=== PATIENT | female | born 1940 | race Caucasian/White ===

== ENCOUNTER 2024-02-02 14:41 | Emergency (ER) | payer OTHER, SELFPAY ==
[2024-02-02 14:47] VITALS: BP 191/87
--- NOTE | 2024-02-02 17:17 | ED.GENMED ---
History of Present Illness
General
Chief Complaint: Fall
Source: patient
Exam Limitations: none
Time Seen by Provider: 02/02/24 15:45
Nursing documentation reviewed up to this point in time: agreed with
Travel History
Have you had any contact with someone who has COVID-19?: No
Do you have any symptoms of coronavirus? Fever > 100 degrees, chills, cough, shortness of breath, sore throat, loss of taste or smell, muscle aches, or headache?: No
History of Present Illness
History of Present Illness:
83-year-old female past medical history of Parkinson's hypertension hypothyroidism presenting to the emergency department today after falling backward and turning while falling hitting her right thigh and also hitting the back of her head did not
lose consciousness not on blood thinners. This occurred when she was helping her who has dementia and got tripped up and fell denies additional concerns Main discomfort to her right thigh but has been able to walk since denies numbness
weakness abdominal pain or back pain.
Past History
Past History
ED Past Medical History: Cancer (Breast cancer), Psychiatric (Anxiety) and Other (Parkinson's disease)
ED Past Surgical History: Gynecological and Other (Thyroidectomy)
Social History
Tobacco: Former smoker
Alcohol: Daily (1 glass wine)
Drug: None
Personal:
Living: with family
Review of Systems
Review of Systems
Allergies reviewed?: Yes
All Other Systems: ROS reviewed and negative except as documented in HPI and ROS
Phy Exam
Physical Exam
Physical Exam:
GENERAL: Alert , in no apparent distress
EYE: pupils equal and reactive
NECK: Supple, no significant adenopathy.
ENT: o/p clr, mmm.
CARDIAC: Regular rate and rhythm .
LUNGS: Clear breath sounds bilaterally, no acute respiratory distress, no wheezes/rales/rhonchi
ABDOMEN: Soft, without focal tenderness, no r/g, no cvat
NEUROLOGICAL: Alert and oriented, no focal neuro deficits
SKIN: Warm and dry, skin intact.
MUSCULOSKELETAL: Swelling and contusion as well as hematoma to the right thigh also very superficial skin tears roughly 6 cm in total length no foreign body seen., well perfused.
PSYCH: Normal and appropriate interaction.
Course
Orders/Labs/Results
Orders:
Orders
02/02/24 14:50
CT Cervical Spine W/o Iv Contr Urgent
Comment:
Reason For Exam: fall
CT Head W/o Iv Contrast Urgent
Comment:
Reason For Exam: fall
CR Femur - Right Min 2 Vw Urgent
Comment:
Reason For Exam: fall
CR Hip - RT w/wo Pel 2-3 Vw* Urgent
Comment:
Reason For Exam: fall
Include a pelvis x-ray?: Yes
CR Knee- Right 4 Or More View* Urgent
Comment:
Reason For Exam: fall
Vital Signs
Initial and Last Documented VS:
Initial Vital Signs
Temp Pulse Resp BP Pulse Ox
98.2 F 60 18 191/87 99
02/02/24 14:47 02/02/24 14:47 02/02/24 14:47 02/02/24 14:47 02/02/24 14:47
Last Documented Vital Signs
Temp Pulse Resp BP Pulse Ox
98.2 F 60 18 191/87 99
02/02/24 14:47 02/02/24 14:47 02/02/24 14:47 02/02/24 14:47 02/02/24 14:47
Procedures
Laceration Closure
Right Lateral Thigh:
Status of Wound: clean
Size of Wound in cm: 6
Description of Wound Edges: other (Skin )
Preparation: cleaned with saline
Revision/Debridement: routine- no revision
Wound exploration: explored to base- no FB and no tendon involvement
Type of Closure: other (10 total Steri-Strips)
MDM/Problems Addressed
MDM/Problems Addressed:
83-year-old female presenting to the emergency department after ground-level fall. Was able to stand up and ambulate since. Initial blood pressure elevated but patient with no chest pain head CT and neck CT normal no significant ongoing neck pain
no numbness or weakness normal neurologic evaluation. Patient does have a skin tear to the right thigh this was cleaned thoroughly and closed with Steri-Strips. Otherwise advised to keep the area clean covered and stable for outpatient management.
Return precautions given. Will follow-up for her high blood pressure.
*Critical Care Note
Total Time (30-74mins, 75-104mins- exclusive of procedures): Not Applicable
ED Attending Note
-
Portions of this chart may have been created with voice recognition software.� Occasional wrong word or��sound alike� substitutions may have occurred due to the inherent limitations of voice recognition software.
Discharge Plan
Departure
Patient Disposition: Home (Routine Discharge)
Date of Disposition: 02/02/24
Time of Disposition: 17:20
Patient with high blood pressure during this ER visit?: No
Condition: Good
Covid-19: Not Applicable
Discharge Problem:
Fall, Skin tear
Instructions: Wound Care (DC), Preventing falls in adults
Prescriptions:
No Action
amlodipine [Norvasc] 5 MG tablet
5 mg PO DAILY Qty: 14 0RF
Rx Instructions:
one tablet once a day
Referrals:
Nargis Busby MD [Family Provider] -
Activity Restrictions/Additional Instructions:
You came to the emergency department today with concerns of a fall. Here you had a normal head CT neck CT and x-rays without signs of emergent injury. Please keep your thigh clean covered and return for any worsening, new or concerning symptoms.
Interventions
Interventions:
*Risk Screen - Suicide Last Done: 02/02/24 14:47
*General Assessment Last Done: 02/02/24 14:47
ED-Musculoskeletal Assessment Last Done: 02/02/24 16:01
ED- Neurological Assessment Last Done: 02/02/24 16:01
ED-Skin Assessment Last Done: 02/02/24 16:01
== END 2024-02-02 17:33 | disposition home or self-care (01) ==
LOC: EMR 14:41
PROVIDERS: EMERGENCY PHYSICIAN Emergency Medicine; FAMILY PHYSICIAN Internal Medicine Geriatric Medicine
DX: S71.111A Laceration without foreign body, right thigh, initial encounter (principal); S70.11XA Contusion of right thigh, initial encounter; W18.30XA Fall on same level, unspecified, initial encounter; I10 Essential (primary) hypertension; Z87.891 Personal history of nicotine dependence
CPT/HCPCS: 99284; 70450; 72125; 73502; 73552; 73564

== ENCOUNTER 2024-08-08 21:24 | Inpatient (IN) | payer OTHER, SELFPAY ==
[2024-08-08] VITALS (7 sets, daily range): BP systolic 122–189; BP diastolic 67–96; BMI 22.5; BMI 22.2
--- NOTE | 2024-08-08 18:00 | ED.MUSCINJ ---
HPI-Injury
General
Chief Complaint: Fall
Time Seen by Provider: 08/08/24 17:35
History of Present Illness-Injury
Initial Injury comments:
Patient presents to the emergency department with right hip pain after fall. Notes that this is a mechanical fall and she was reaching for blood and open a door and lost her footing. She landed on the right hip. There is no head strike or loss of
consciousness. She denies pain anywhere else besides the right hip. Denies numbness or tingling going down the legs.
Past History
Past History
ED Past Medical History: Cancer (Breast cancer), Psychiatric (Anxiety) and Other (Parkinson's disease)
ED Past Surgical History: Gynecological and Other (Thyroidectomy)
Social History
Tobacco: Former smoker
Alcohol: Daily (1 glass wine)
Drug: None
Personal:
Living: with family
Phy Exam
Physical Exam
Physical Exam:
GENERAL APPEARANCE: Uncomfortable appearing moaning in pain
EYES lids/conjunctiva normal
EARS/NOSE/THROAT Mucous membranes moist, uvula midline without oral pharyngeal erythema, exudate or swelling
HEAD/NECK normocephalic atraumatic, neck is supple.
RESPIRATORY respiratory effort normal, speaks in full sentences, no accessory muscle use. Lungs clear to auscultation without rhonchi, wheezes, rales
CARDIAC Regular rate and rhythm, no edema.
ABDOMINAL Soft, ND/NT.
MUSCLES/EXTREMITIES right leg is shortened and there is tenderness at the hip. There is no tenderness in the knee. Pedal pulses, sensation and motor function are all intact distally.
SKIN Warm, pink and dry. No rashes
NEUROLOGICAL Speech is clear and appropriate. Normal level of consciousness. 5/5 strength in all extremities.
Injury Course
Orders/Labs/Results
Orders:
Orders
08/08/24 Breakfast
Regular
08/08/24 17:57
Electrocardiogram (*1) Urgent
Reason for Study: PreOp
08/08/24 17:58
CR Hip - RT w/wo Pel 2-3 Vw* Urgent
Comment:
Reason For Exam: fall with deformity
Include a pelvis x-ray?: Yes
08/08/24 18:00
Acetaminophen [Tylenol] 1,000 mg PO NOW STA
Morphine Sulfate 2 mg IV NOW STA
08/08/24 18:33
Type+Screen Urgent
Complete Blood Count/With Diff Urgent
Comprehensive Metabolic Panel Urgent
PTT Urgent
Prothrombin Time Urgent
08/08/24 19:05
ABO2 Urgent
BBK Wristband Number:
Associate notified that ABO2 has been ordered: [id number]
Date: 08/08/24
Time: 18:41
G[employer] Farmworker ID: [id number]
Urinalysis Reflex To Culture Urgent
Date Specimen was Collected: 08/08/24
Time Specimen was Collected: 18:58
08/08/24 19:14
Morphine Sulfate 2 mg .ROUTE .STK-MED ONE
08/08/24 19:21
Morphine Sulfate 2 mg IV NOW STA
08/08/24 19:23
Carbidopa/Levodopa [Sinemet 25-100] 1 tablet PO NOW STA
08/08/24 20:54
Admit/Transfer Patient As Directed
Co-Sign Provider:
Level of Care: Inpatient admission
Assign to:: Telemetry
Physician / Group: Zeus
Diagnosis: R Hip Fracture
Reason for Telemetry: Arrhythmia
Date to Stop Telemetry: 08/11/24
Time to Stop Telemetry: 11:00
Reason for Hospitalization: R Hip Fracture
Expected length of stay greater than two midnights?: Yes
ELOS- Estimated Length of Stay in days: 2
I certify the patient meets the requirements for IP care: Yes
PRN Pain Medication Management As Directed
May give lesser potent ordered pain med per pt: Yes
preference::
Protocol:: Medication orders for pain may be administered in a
manner that supports deferring to patient preference
when the pt is:
- Requesting an ordered lesser potent pain medication.
Least to most potent pain medications are defined
as: acetaminophen < NSAID < tramadol < opioids
(morphine, oxycodone, hydromorphone).
- Requesting a lesser dose of the same medication IF
ORDERED.
- Requesting a less intrusive route of administration
if both routes are prescribed by the provider (PO <
IV).
08/08/24 20:56
Code Status As Directed
Resuscitation Status: Full Code
08/08/24 21:01
Morphine Sulfate 2 mg IV NOW STA
08/08/24 22:11
Amlodipine [Norvasc] 2.5 mg PO HS
Carbidopa/Levodopa [Sinemet 25-100] 0.5 tablet PO HS
Morphine Sulfate 2 mg IV Q4HPRN PRN
08/08/24 22:11
ORTHOPEDIC CONSULT Routine
Consulting Provider: Shyam Quiñones
Was physician already notified: Yes
Reason for consult: R Hip Fracture
Activity As Directed
Activity Level: Bedrest
I/O [Intake/ Output] As Directed
Frequency: Per unit guidelines
Pneumatic Compression Sleeves As Directed
Type: Knee high
Vital Signs As Directed
Frequency: Per unit guidelines
Oxygen Therapy [O2 Therapy] [RESP] Routine
Titrate/Wean O2 to maintain O2 sat greater than (%): 94
DX Deep Vein Thrombosis Video Routine
08/09/24 00:35
Acetaminophen [Tylenol] 1,000 mg PO TID
08/09/24 Breakfast
NPO
Allow oral meds: Yes
Allow clear liquids: Sips of Clears
NPO for procedure after (time): Midnight
Basic Metabolic Panel IN AM
Complete Blood Count/No Diff IN AM
Levothyroxine [Synthroid] 112 mcg PO DAILY @ 0600
08/09/24 08:00
Carbidopa/Levodopa [Sinemet 25-100] 1 tablet PO TID@0800,1400,1800
08/11/24 11:00
DC Protocol for Telemetry ONCE
Abnormal Lab Results
08/08/24
18:33
RBC 3.83 L 10^6/uL
(4.20-5.40)
Hgb 11.5 L g/dL
(12.0-16.0)
Hct 33.7 L %
(37.0-47.0)
Eosinophils % 6.5 H %
(0-6)
BUN 21 H mg/dl
(7-17)
08/08/24 18:33
08/08/24 18:33
*Critical Care Note
Total Time (30-74mins, 75-104mins- exclusive of procedures): Not Applicable
ED Attending Note
ED Attending Note
ED Attending Note:
Clinically suspect right hip fracture. Will place IV draw labs, treat pain and obtain x-rays. There is no signs of significant injury elsewhere.
Xray confirms femoral neck fracture
Dr Quiñones consulted
admitted to hospitalist
-
Portions of this chart may have been created with voice recognition software.� Occasional wrong word or��sound alike� substitutions may have occurred due to the inherent limitations of voice recognition software.
Discharge Plan
Departure
Patient Disposition: Admit
Date of Disposition: 08/08/24
Time of Disposition: 20:14
Presentation/result/management discussed w/ accepting MD/DO: Hospitalist
Discharge Problem:
Closed displaced fracture of right femoral neck
Interventions
Interventions:
*Risk Screen - Suicide Last Done: 08/08/24 17:36
*General Assessment Last Done: 08/08/24 17:36
*Neglect/Abuse Screening Last Done: 08/08/24 17:36
ED- Fall Risk Assessment Last Done: 08/08/24 17:55
*ED COVID-19 Vaccine History Last Done: 08/08/24 17:55
*Nursing Disposition Last Done: 08/08/24 21:39
ED-Musculoskeletal Assessment Last Done: 08/08/24 18:41
ED- Neurological Assessment Last Done: 08/08/24 18:41
ED-Skin Assessment Last Done: 08/08/24 18:42
Discharge Date and Time
Discharge Date/Time: 08/08/24 21:40
[2024-08-08] MEDS: MORPHINE SULFATE 2 MG IV ×4 (18:35→22:42)
[2024-08-08] MEDS: TYLENOL 1000 MG PO ×2 (18:35→23:23)
[2024-08-08 18:40] LABS: % Basophils 0.5 % (0-2); % Eosinophils 6.5 % (0-6); % Immature Granulocytes 0.5 % (0-0.5); % Lymphocytes 20.5 % (20.5-51.1); % Monocytes 8.2 % (1.7-9.3); % Neutrophils 63.8 % (42.2-75.2); Absolute Eosinophils 0.5 10^3/uL (0-0.7); Absolute Lymphocytes 1.6 10^3/uL (1.2-3.4); Absolute Monocytes 0.6 10^3/uL (0.1-0.6); Hematocrit 33.7 % (37.0-47.0); Hemoglobin 11.5 g/dL (12.0-16.0); Mean Corp Hgb Conc. 34.1 g/dL (33.0-37.0); Mean Platelet Volume 9.6 fL (7.4-10.4); Nucleated Red Blood Cells % 0 %; Platelet Count 192 10^3/uL (130-400); Red Blood Cell Count 3.83 10^6/uL (4.20-5.40); Red Cell Dist. Width 12.5 % (11.5-14.5); White Blood Cell Count 7.8 10^3/uL (4.8-10.8)
[2024-08-08 18:50] LABS: APTT 24.7 Sec (23.4-35.0); INR 1.02; PT 13.4 Sec (11.4-14.6)
[2024-08-08 18:58] LABS: AST (SGOT) 30 U/L (14-36); Albumin 4.2 g/dl (3.5-5.0); Alkaline Phosphatase 94 U/L (38-126); Blood Urea Nitrogen 21 mg/dl (7-17); Calcium 8.8 mg/dl (8.4-10.2); Carbon Dioxide 24 mmol/L (22-30); Chloride 105 mmol/L (98-107); Estimated Creatinine Clearance 45 ml/min; Glucose 88 mg/dl (70-99); Sodium 141 mmol/L (135-145); Total Bilirubin 0.8 mg/dl (0.2-1.3); Total Protein 6.7 g/dl (6.3-8.2); eGFR > 60.00
[2024-08-08 19:06] LABS: ALT (SGPT) < 10 U/L (0-35)
[2024-08-08 19:18] LABS: Potassium 4.3 mmol/L (3.5-5.1)
[2024-08-08 19:29] LABS: Urine Albumin Negative (Neg - Trace); Urine Bilirubin Negative (Negative); Urine Character Clear (Clear); Urine Color Yellow; Urine Glucose Negative (Negative); Urine Ketone Negative (Negative); Urine Leukocyte Negative (Negative); Urine Nitrite Negative (Negative); Urine Occult Blood Negative (Negative); Urine Specific Gravity 1.005 (<1.030); Urine Urobilinogen Negative (Neg - 1+)
[2024-08-08] MEDS: SINEMET 25-100 1 TABLET PO (19:46)
--- NOTE | 2024-08-08 21:02 | HPS.HSE ---
Family Physician
-
Family Physician: Nargis Busby
Chief Complaint
-
Fall, Hip Pain
History of Present Illness
Patient is an 83y F with PMH significant for Parkinson's disease who presents to ED complaining of fall with R hip pain. Patient states that she was trying to open a door that seemed too heavy. She turned to push the wall button to open the
door automatically, but lost her balance and fell - landing on her R side. Patient noted immediate pain in the R hip. She is not certain whether or not she struck her head; however, she has no headache or other current similar complaints. She did
not lose consciousness. Patient denies any prodrome of lightheadedness, dizziness, chest pain or dyspnea prior to the fall.
In the ED, patient is noted to have fracture of the R femoral neck.
Medical History
Past Medical History
Past Medical History: Reports Other
Additional Past Medical History:
Parkinson's Disease
Hypertension
Hypothyroidism
Thyroid Cancer
Breast Cancer
Past Surgical History: Reports Other
Additional Past Surgical History:
Lumpectomy (20 years ago)
Thyroidectomy
Oophorectomy
Social History
Tobacco: Non-smoker
Alcohol: Daily (1 glass wine daily.)
Drug: None
Family History
Family History: Not pertinent
Allergies / Home Medications
Allergies reflects when Allergies were last updated in [employer].
Home Medications with original date entered in [employer]
Allergy/Medication List:
Allergies
Allergy/AdvReac Type Severity Reaction Status Date / Time
levofloxacin [From Levaquin] Allergy Unknown Hives Verified 02/02/24 14:46
Home Medications
acetaminophen 500 mg tablet 1,000 mg PO DAILY 08/08/24
amlodipine 2.5 mg tablet 2.5 mg PO HS 08/08/24
carbidopa 25 mg-levodopa 100 mg tablet 0.5 tab PO HS 08/08/24
carbidopa 25 mg-levodopa 100 mg tablet 1 tab PO TID@0800,1400,1800 08/08/24
cholecalciferol (vitamin D3) 50 mcg (2,000 unit) capsule 50 mcg PO HS 08/08/24
levothyroxine 112 mcg tablet (Synthroid) 112 mcg PO DAILY 08/08/24
omeprazole 20 mg capsule,delayed release 20 mg PO DAILY 08/08/24
Review of Systems
-
History Source: Patient
A 12 point ROS was completed and negative except as noted: Yes
Constitutional: Denies Fever or Chills
Respiratory: Denies Cough or Trouble Breathing
Cardiac: Denies Chest Pain or Palpitations
Abdomen/GI: Denies Abdominal Pain, Nausea, Vomiting or Diarrhea
: Denies Dysuria or Frequency
Musculoskeletal: Reports Joint Pain; Denies Edema
Neurological: Denies Dizzy or Headache
Psych: Denies Depression or Anxiety
Physical Exam
Vital Signs
Vital Signs
Temp Pulse Resp BP Pulse Ox
97.9 F 82 16 163/75 96
08/08/24 17:36 08/08/24 20:00 08/08/24 20:00 08/08/24 20:00 08/08/24 20:00
Physical Exam
General: Other (83y F in moderate distress due to pain.)
HEENT: Moist mucous membranes and PERRLA
Respiratory: Clear; No Wheezes, Rales or Rhonchi
Cardiac: S1/S2, Regular Rhythm and Murmur (II/ YOLA)
GI: Soft, Non Tender, Non Distended and Normal Bowel Sounds
Musculoskeletal: No Clubbing, No Cyanosis and No Edema
Neuro: AO x 3
Psych: No Agitated or Anxious
Laboratory Results
-
08/08/24 18:33
08/08/24 18:33
Laboratory Results
PT 13.4 Sec (11.4-14.6) 08/08/24 18:33
INR 1.02 08/08/24 18:33
APTT 24.7 Sec (23.4-35.0) 08/08/24 18:33
Total Bilirubin 0.8 mg/dl (0.2-1.3) 08/08/24 18:33
AST 30 U/L (14-36) 08/08/24 18:33
ALT < 10 U/L (0-35) 08/08/24 18:33
Alkaline Phosphatase 94 U/L (38-126) 08/08/24 18:33
Impression/Plan
-
A/P: Patient is an 83y F with PMH significant for Parkinson's disease who presents to ED complaining of R hip s/p fall.
Right Hip Fracture
- Admit for further evaluation and treatment.
- Pain control / bedrest for now.
- Ortho evaluation for eventual operative repair.
- NPO after midnight.
- PT / OT post-op.
- Patient is at risk for complications related to surgery or anesthesia primarily on the basis of age and Parkinsonism.
- Benefits of planned procedure outweigh the potential risks and patient is OK to proceed to the OR without additional pre-op evaluation(s).
Parkinson's Disease
Visual Hallucinations secondary to the above
- Recent development of hallucinations per patient / family.
- Stopped Azilect 5-6 days ago at Neurology direction as it was felt this was contributing to hallucinations.
- Monitor for any new / increased symptoms in setting of narcotic pain medication, anesthesia effects, etc.
- Continue current Parkinson's medications without changes / interruptions.
Benign Hypertension
- Stable. Continue amlodipine with holding parameters.
Hypothyroidism
History of Thyroid Cancer s/p Thyroidectomy
- Stable. Continue current T4 supplementation.
DVT Prophylaxis: SCDs for now. Post-op per Ortho.
Code Status: Full
[2024-08-08] MEDS: MORPHINE SULFATE IV (21:15)
--- NOTE | 2024-08-08 22:30 | PTCARENOTE ---
Received patient from ER. stable vitals. 08/29 right hip pain with transfer to bed. Sr on tele. AAOx3,anxious. POC reviewed with patient.
[2024-08-08] MEDS: SINEMET 25-100 0.5 TABLET PO (22:54)
[2024-08-08] MEDS: NORVASC 2.5 MG PO (22:57)
[2024-08-09] MEDS: MORPHINE SULFATE 2 MG IV ×2 (02:57→11:56)
[2024-08-09 03:15] VITALS: BP 122/76
[2024-08-09] MEDS: SYNTHROID 112 MCG PO (06:08)
[2024-08-09 06:59] LABS: Hematocrit 31.3 % (37.0-47.0); Hemoglobin 10.3 g/dL (12.0-16.0); Mean Corp Hgb Conc. 32.9 g/dL (33.0-37.0); Mean Corpuscular Hgb 29.8 pg (27.0-31.0); Mean Corpuscular Volume 90.5 fL (81.0-99.0); Mean Platelet Volume 9.8 fL (7.4-10.4); Platelet Count 186 10^3/uL (130-400); Red Blood Cell Count 3.46 10^6/uL (4.20-5.40); Red Cell Dist. Width 12.4 % (11.5-14.5); White Blood Cell Count 8.8 10^3/uL (4.8-10.8)
[2024-08-09] MEDS: TYLENOL 1000 MG PO ×3 (07:33→21:34)
[2024-08-09] MEDS: SINEMET 25-100 1 TABLET PO ×3 (07:33→17:52)
[2024-08-09 07:48] LABS: Blood Urea Nitrogen 22 mg/dl (7-17); Calcium 8.6 mg/dl (8.4-10.2); Carbon Dioxide 25 mmol/L (22-30); Chloride 104 mmol/L (98-107); Estimated Creatinine Clearance 45 ml/min; Glucose 107 mg/dl (70-99); Potassium 4.1 mmol/L (3.5-5.1); Sodium 139 mmol/L (135-145); eGFR > 60.00
[2024-08-09 07:50] VITALS: BP 163/78
--- NOTE | 2024-08-09 08:07 | W.PN.UPDATE ---
Update Note
Progress Note Update
Full consult to follow
83yo female admitted to the hospital following a fall with right hip pain. Xrays in ER reveal right femoral neck fracture. Plan for OR tomorrow 08/10/24 under the direction of Dr. Toledo for right hip hemiarthroplasty. May have diet today. NPO after
midnight. Bedrest for now. Medical optimization for OR tomorrow. Notified son, Levi, of timing for OR.
--- NOTE | 2024-08-09 09:42 | PTOTSP ---
Dysphagia Evaluation
Patient presents with signs concerning for a chronic unspecified pharyngeal vs esophageal dysphagia described as globus sensation and stasis greater with solids than liquids occurring intermittently in frequency. Patient denied any known
respiratory complications from dysphagia.
Patient with acute on chronic dysphagia risk factors (i.e., unable to tolerate full HOB elevation secondary to pain s/p R hip fx, Parkinson's disease). Objective assessment of swallowing recommended post-op. Patient undecided.
Recommend:
1. Regular (pick soft/moist foods), Thin Liquids
2. Medications - 1 at a time in puree
3. Strategies: HOB as close to 90 degrees as medically cleared/tolerated, soften/moisten foods, alternate sips/bites, remain upright for 30 minutes after PO intake
4. Oral care 3x daily
5. Video swallow study if patient in agreement.
6. Consider GI consult
--- NOTE | 2024-08-09 10:59 | W.PN.HOSP.TC ---
Today's Communication/Plan
-
Continue current care
N.p.o. after midnight
Assessment / Plan
Assessment / Plan
Gen-AAOx3, NAD
HEENT-NC, AT, anicteric, clear oral mm
Neck-supple
CV-reg, no M, +S1/S2
Lungs-clear B/L
Abd-soft, NT, ND
Ext-no edema
Musculoskeletal-no cyanosis, clubbing, right lower extremity shortened and externally rotated
Skin-warm and dry
Neuro-grossly non-focal
Psych-calm, cooperative
Acute traumatic right subcapital femur fracture -impacted on x-ray. Fracture due to trauma from fall and underlying osteoporosis. Orthopedics plans on operative repair 08/10. N.p.o. after midnight. Continue analgesics.
Appears at acceptable risk for surgery.
Parkinson's disease - complicated by visual hallucinations. Azilect discontinued a week ago by her neurologist In hopes of improving hallucinations.
Dysphagia -unclear pharyngeal versus esophageal. Speech therapy input noted. Recommendation to continue regular diet, thin liquids but to pick soft and moist foods primarily. Patient was offered video swallowing study by speech therapy but
currently declines. Aspiration precautions.
Normocytic anemia - unknown etiology or chronicity. Monitor for now.
Essential hypertension -continue amlodipine.
Hypothyroidism -continue Synthroid.
History of thyroid cancer - s/p thyroidectomy.
Full code
Left a voicemail for patient's son Levi to call me back. [phone].
Anticipated Discharge: > 48 hours
Subjective/Interval History
-
Date of Service: August 09, 2024
Patient seen and examined. Complaining of right hip pain.
Objective Data
-
Labs:
Laboratory Results
08/09/24
06:08
WBC 8.8
Hgb 10.3 L
Hct 31.3 L
Plt Count 186
Sodium 139
Potassium 4.1
Chloride 104
Carbon Dioxide 25
BUN 22 H
Creatinine 0.8
Glucose 107 H
Calcium 8.6
Vital Signs:
Vital Signs
Temp Pulse Resp BP Pulse Ox
98.0 F 69 16 163/78 95
08/09/24 07:50 08/09/24 07:50 08/09/24 07:50 08/09/24 07:50 08/09/24 07:50
I&O
08/08/24 08/09/24 08/10/24
06:59 06:59 06:59
Output Total 150 / 150
Balance -150 / -150
Review of Systems
-
History Source: Patient
All other systems: Reviewed and negative
[2024-08-09 11:15] VITALS: BP 140/46
--- NOTE | 2024-08-09 11:46 | CON.ORTHO ---
Documented by User: Nalini Boggs PA-C 08/09/24 11:55
Consultation
-
Date/Time Consultation Requested: 08/08/24
Date/Time Consultation Performed: 08/09/24 @7:00am
Requesting Provider: ER physician
Performing Provider: Nalini Boggs PA-C, Shyam Quiñones MD
Reason for Consultation: right hip fracture
Consultation - Orthopedics
History
HPI: 83yo female admitted to [facility] following a fall yesterday followed by right hip pain. She reports that she was opening a heavy door when she lost her balance causing her to fall onto her right side. Evaluation in the ER revealed a
right hip fracture. She reports that she has pain in the right leg with any movement. She does not take any blood thinners. Orthopedics has been consulted for further management.
PAST MEDICAL HISTORY: anxiety, Parkinson's, HTN, hypothyroid, thyroid cancer, breast cance
PAST SURGICAL HISTORY: lumpectomy, thyroidectomy, ooprectomy
SOCIAL HISTORY: former smoker, drinks one glass of wine per day, lives at [facility] in independent living -- her is in memory care at [facility]
REVIEW OF SYSTEMS: 12 point review of systems obtained and negative except those mentioned in the HPI
Allergies / Home Medications
Allergy/AdvReac Type Severity Reaction Status Date / Time
levofloxacin [From Levaquin] Allergy Hives Verified 08/08/24 22:13
�Medication �Instructions �Recorded
acetaminophen 500 mg tablet 1,000 mg PO DAILY 08/08/24
amlodipine 2.5 mg tablet 2.5 mg PO HS 08/08/24
carbidopa 25 mg-levodopa 100 mg 0.5 tab PO HS 08/08/24
tablet
carbidopa 25 mg-levodopa 100 mg 1 tab PO TID@0800,1400,1800 08/08/24
tablet
cholecalciferol (vitamin D3) 50 50 mcg PO HS 08/08/24
mcg (2,000 unit) capsule
levothyroxine 112 mcg tablet 112 mcg PO DAILY 08/08/24
(Synthroid)
omeprazole 20 mg capsule,delayed 20 mg PO DAILY 08/08/24
release
Vital Signs / Lab Results
Temp Pulse Resp BP Pulse Ox
98.0 F 69 16 163/78 95
08/09/24 07:50 08/09/24 07:50 08/09/24 07:50 08/09/24 07:50 08/09/24 07:50
08/09/24 06:08
08/09/24 06:08
RADIOGRAPHIC FINDINGS:
Xrays right hip reveal acute subcapital fracture of the right femur with 3 cm impaction of the distal fracture fragment
PHYSICAL EXAM:
General: no acute distress
HEENT: NCAT. sclera anicteric. slightly hard of hearing
Heart: No JVD
Lungs: Normal work of breathing on room air
MSK: Directed exam of right lower extremity reveals leg shortened and externally rotated. +TTP about the lateral hip. +Logroll. Able to plantarflex and dorsiflex the ankle. Calf soft and nontender. NVI distally
Assessment / Plan
ASSESSMENT: 83yo female with right femoral neck fracture
PLAN: Unfortunately, Mrs. Hylton has sustained a right femoral neck fracture following a mechanical fall yesterday. Recommend operative fixation. The risks, benefits, and potential complications were reviewed the the patient. Will plan for right hip
hemiarthroplasty tomorrow under the direction of Dr. Toledo. Surgical and blood consent were obtained and placed on chart. She will need to be NPO after midnight. Ancef route contractor to OR. Bedrest for now. Continue with pain management per primary team.
Will continue to follow along

Documented by User: Kermit Toledo MD 08/10/24 09:02
Consultation - Orthopedics
Assessment / Plan
ASSESSMENT: 83yo female with right femoral neck fracture
PLAN: Unfortunately, Mrs. Hylton has sustained a right femoral neck fracture following a mechanical fall yesterday. Recommend operative fixation. The risks, benefits, and potential complications were reviewed the the patient. Will plan for right hip
hemiarthroplasty tomorrow under the direction of Dr. Toledo. Surgical and blood consent were obtained and placed on chart. She will need to be NPO after midnight. Ancef route contractor to OR. Bedrest for now. Continue with pain management per primary team.
Will continue to follow along
Addendum 08/10/2024 0850
I evaluated the patient at bedside. I agree with the above note. 83-year-old female who sustained a trip and fall 2 days ago. She was walking out of a alf facility where her was at when she reports that she got her legs
tangled and fell onto the right side. She was ambulating without assist device before the injury. After the fall she was unable to bear weight. The emergency department performed x-rays which showed a displaced right femoral neck fracture. She
denies right hip pain prior to this injury. I discussed with the patient with her son treatment options. We discussed given the displaced nature of the fracture that ORIF would have a high likelihood of complication. We discussed right hip
hemiarthroplasty and the recovery process. We discussed the risks including infection and continued pain and hardware complication. Shared decision was to proceed with right hip hemiarthroplasty. All questions were answered.
--- NOTE | 2024-08-09 13:34 | CM ---
Met with patient and son/POA, Levi Reyes # [phone], at the bedside; initial assessment completed
s/p Fall; has an Acute traumatic right subcapital femur fracture
Pharmacy verified: [facility] [id number] [facility] [place]
Patient lives in an apartment @ [facility]; her resides in Memory Care unit @ [facility]
PLOF: Patient has 20 yr history of Parkinson's disease managed well with medication; patient reported that she is very active, independent with ADLs, did not need a device with ambulation
Transportation to be determined
Scheduled for OR tomorrow, 08/10
PT/OT evaluations pending; If SNF is recommended, preference is [facility] if bed is available
Discharge Plan pending hospital course; CM will continue to monitor for needs
[2024-08-09 15:10] VITALS: BP 142/78
[2024-08-09 19:05] VITALS: BP 167/76
--- NOTE | 2024-08-09 19:19 | PTCARENOTE ---
Around 1700 after waking up from a nap, patient became increasingly agitated, paranoid and confused. Yelling at RN, and stating that she is being poisoned. She refused to eat her dinner and only took half of the applesauce that contained her sinemet
and tylenol. Simone at bedside. Dr. Rollins made aware.
[2024-08-09] MEDS: SINEMET 25-100 0.5 TABLET PO (21:35)
[2024-08-09] MEDS: NORVASC 2.5 MG PO (21:35)
[2024-08-09] MEDS: MELATONIN PO (21:41)
[2024-08-09 23:00] VITALS: BP 167/71
[2024-08-10] VITALS (11 sets, daily range): BP systolic 103–176; BP diastolic 56–91
[2024-08-10] MEDS: SYNTHROID 112 MCG PO (05:54)
[2024-08-10 06:47] LABS: % Basophils 0.4 % (0-2); % Eosinophils 3.9 % (0-6); % Immature Granulocytes 0.3 % (0-0.5); % Lymphocytes 12.4 % (20.5-51.1); % Monocytes 7.3 % (1.7-9.3); % Neutrophils 75.7 % (42.2-75.2); Absolute Eosinophils 0.4 10^3/uL (0-0.7); Absolute Lymphocytes 1.2 10^3/uL (1.2-3.4); Absolute Monocytes 0.7 10^3/uL (0.1-0.6); Absolute Neutrophils 7.5 10^3/uL (1.4-6.5); Hematocrit 34.2 % (37.0-47.0); Hemoglobin 11.4 g/dL (12.0-16.0); Mean Corp Hgb Conc. 33.3 g/dL (33.0-37.0); Mean Platelet Volume 9.8 fL (7.4-10.4); Nucleated Red Blood Cells % 0 %; Platelet Count 195 10^3/uL (130-400); Red Cell Dist. Width 12.1 % (11.5-14.5); White Blood Cell Count 9.9 10^3/uL (4.8-10.8)
[2024-08-10] MEDS: SINEMET 25-100 1 TABLET PO ×2 (08:46→17:34)
[2024-08-10] MEDS: TYLENOL 1000 MG PO ×3 (08:46→22:05)
--- NOTE | 2024-08-10 09:27 | W.PN.HOSP.TC ---
Today's Communication/Plan
-
Await surgery today
Assessment / Plan
Assessment / Plan
Gen-AAOx3, NAD
HEENT-NC, AT, anicteric, clear oral mm
Neck-supple
CV-reg, no M, +S1/S2
Lungs-clear B/L
Abd-soft, NT, ND
Ext-no edema
Musculoskeletal-no cyanosis, clubbing, right lower extremity shortened and externally rotated
Skin-warm and dry
Neuro-grossly non-focal
Psych-calm, cooperative
Acute traumatic right subcapital femur fracture -impacted on x-ray. Fracture due to trauma from fall and underlying osteoporosis. Orthopedics plans on operative repair 08/10. Continue analgesics.
Appears at acceptable risk for surgery.
Parkinson's disease - complicated by visual hallucinations. Azilect discontinued a week ago by her neurologist In hopes of improving hallucinations.
Dysphagia -unclear pharyngeal versus esophageal. Speech therapy input noted. Recommendation to continue regular diet, thin liquids but to pick soft and moist foods primarily. Patient was offered video swallowing study by speech therapy but
currently declines. Aspiration precautions. Updated patient's son at the bedside and he would like to pursue video swallowing study while she is here, study ordered for Monday.
Normocytic anemia - unknown etiology or chronicity. Monitor for now.
Essential hypertension -continue amlodipine.
Hypothyroidism -continue Synthroid.
History of thyroid cancer - s/p thyroidectomy.
Full code
Updated son Levi at the bedside.
Anticipated Discharge: > 48 hours
Subjective/Interval History
-
Date of Service: August 10, 2024
Patient seen and examined. No complaints.
Objective Data
-
Labs:
Laboratory Results
08/10/24
06:22
WBC 9.9
Hgb 11.4 L
Hct 34.2 L
Plt Count 195
Vital Signs:
Vital Signs
Temp Pulse Resp BP Pulse Ox
98.1 F 78 18 160/83 95
08/10/24 02:53 08/10/24 02:53 08/10/24 02:53 08/10/24 02:53 08/10/24 02:53
I&O
08/09/24 08/10/24 08/11/24
06:59 06:59 06:59
Intake Total 480 / 480
Output Total 150 / 150 1450 / 1450
Balance -150 / -150 -970 / -970
Review of Systems
-
History Source: Patient
All other systems: Reviewed and negative
--- NOTE | 2024-08-10 11:37 | OR.RPT ---
Operative Report
Operative Report
Orthopaedic Surgery Operative Note
DATE OF OPERATION: 08/10/2024
PREOPERATIVE DIAGNOSES: Displaced femoral neck fracture, right
POSTOPERATIVE DIAGNOSES: Same
OPERATION PERFORMED: Right hip hemiarthroplasty
SURGEON: Kermit Toledo MD
SENIOR ACCOUNTING CLERK: Percy Espinoza PA-C who helped with patient and limb positioning and retraction
ANESTHESIA: General
COMPLICATIONS: None.
ESTIMATED BLOOD LOSS: 100 mL.
DRAINS: None
SPECIMEN: None
FINDINGS: Displaced fracture of the femoral neck
IMPLANTS: [employer] stem size 11, standard offset, Size 41 Endo unipolar head, DJO bone cement, distal cement restrictor, distal centralizer
INDICATIONS: The patient presented to the emergency department after a fall sustained leaving a [place] [facility] facility with new onset hip pain. Xrays showed a displaced right femoral neck fracture. I discussed treatment options with the patient
and discussed that based on the degree of displacement that fixation of the fracture may have a high risk of complication and failure. I discussed surgical treatment with arthroplasty. Based on the patient's age and activity level, shared decision
was to proceed with hemiarthroplasty. I reviewed the risks, benefits, and alternatives of various treatment options. The patient understood the risks which included, but were not limited to, bleeding, infection, failure to relieve pain, more pain
than preop, damage to blood vessels and nerves, need for reoperation, mechanical failure of the implants, wound healing problems, stiffness, instability, blood clot, pulmonary embolism, myocardial infarction, pneumonia, arrhythmia, CVA, and .
The patient accepted these risks and wished to proceed. All questions were answered, and informed consent was obtained.
PROCEDURE IN DETAIL:
The patient was identified in the preoperative holding area. The right hip was identified as the operative site. The patient was taken in the operating room and transferred to the operative table. General anesthesia was performed. IV antibiotics and
tranexamic acid were administered. The patient was placed in the lateral position with Stulberg hip positioners. Axillary roll was placed. The down leg was well padded. All bony prominences were well padded. The operative limb was prepped and draped
in the usual sterile fashion.
Time out was performed. A posterolateral approach to the hip was used. The skin incision was centered over the greater trochanter. This was taken down sharply through subcutaneous tissues. Meticulous hemostasis was achieved throughout the case with
electrocautery. We split the fascia ilan in line with skin incision. I split the gluteus capo bluntly. We cauterized all crossing vessels as we split it. I palpated the sciatic nerve and made sure it was well posterior in the operative field. It
was protected throughout the case.
The posterior anatomy was distorted due to fracture hematoma and swelling. I performed a partial bursectomy to identify the short external rotators. The gluteus medius and minimus were identified and retracted anteriorly. I incised the piriformis
tendon and conjoint tendon at their insertions. These were tagged for later repair. I then performed a trapezoidal capsulotomy. The edges were tagged for later repair.
The femoral neck fracture was identified. The leg was flexed and internally rotated, and a fresh femoral neck cut was performed. The femur was translated anteriorly. Care was taken to preserve the labrum. The femoral head was carefully removed with
a caraballo and a tenaculum. The head measured to be 41mm. The acetabulum was inspected and noted not to have marked degenerative changes. A trial head was placed in the acetabulum and size 41 had appropriate fit and suction fit.
Attention was turned to the femur. Box osteotome and Charnley awe were used to open the canal. The femur was sequentially broached to size 11 which had appropriate fit and fill. A trial head was placed with standard offset neck and the hip was
reduced. Leg length and offset were checked and found to be appropriate. The hip was taken through complete range of motion and found to be stable in extension, the position of sleep, and at 90 degrees of flexion and internal rotation.
Trials were removed and the femoral canal was prepared with irrigation and ribbon gauze packing sequentially. A cement restrictor was placed into the femoral canal 1cm distal to the tip of the femoral stem. This was measured off the trial femoral
stem. Once the femoral canal was prepared, the cement was mixed. Once doughy in consistency, the cement was pressurized into the canal with a cement gun. The stem was then carefully inserted into the canal with care to minimize rotation or
micromotion. Excess cement was removed. Once the cement was polymerized, the joint was irrigated copiously. The acetabulum was inspected to be free of cement particles and other debris. The final head was impacted onto clean and dry trunion and the
hip was reduced. Leg length and stability were checked again and found to be acceptable. The sciatic nerve was inspected and noted to be free of tension and uninjured.
A dilute betadine soak was performed for approximately 3 minutes, and then the hip was copiously irrigated. I repaired the capsule, piriformis, and conjoint tendon with #2 Ethibond to drill holes in the greater trochanter. Local anesthetic was
injected. The fascia ilan was closed with #1 PDS in running fashion. The subcutaneous tissues were closed with 2-0 PDS in running fashion. The skin was reapproximated with 3-0 Monocryl subcuticular suture. I placed a Prineo dressing followed by a
Mepilex Ag dressing. The patient awoke from anesthesia without difficulty. Sponge and instrument counts were correct x2 at the end of the case.
I was present and participated in the entire procedure. The patient was sent to the recovery room in stable condition.
Sandeep Toledo MD
--- NOTE | 2024-08-10 12:45 | PTCARENOTE ---
Patient returned to her room from [facility] right hemiarthroplasty for right hip fracture.Vital signs are stable.Neurovascular assessment is within normal limits and ongoing.The patient is alert but is very agitated and confused.She is in her bed
with the call dill in place.The bed alarm is also in place.
[2024-08-10] MEDS: SINEMET 25-100 PO ×2 (13:43→16:36)
[2024-08-10] MEDS: TYLENOL PO (16:36)
[2024-08-10] MEDS: ANCEF 5 IV (17:15)
[2024-08-10] MEDS: ASPIRIN 325 MG PO (17:23)
--- NOTE | 2024-08-10 21:30 | PTCARENOTE ---
Pt. very confused and paranoid, repeatedly calling 911. Dispatch called hospital and UC spoke to dispatch to explain the situation. Police arrived to investigate following multiple more calls from patient along with security. Police and security
spoke with patient and calmed her down. Pt voluntarily surrendered cellphone to the officer when asked and police turned it over to nursing staff. Pt's cell locked up in med cart.
[2024-08-10] MEDS: SINEMET 25-100 0.5 TABLET PO (22:05)
[2024-08-10] MEDS: NORVASC 2.5 MG PO (22:05)
[2024-08-10] MEDS: SENOKOT PO (22:10)
[2024-08-10] MEDS: COLACE PO (22:10)
[2024-08-10] MEDS: MELATONIN PO (22:10)
[2024-08-11] MEDS: ANCEF 5 IV (03:01)
[2024-08-11 03:11] VITALS: BP 168/88
[2024-08-11 06:34] LABS: % Basophils 0.1 % (0-2); % Eosinophils 0.2 % (0-6); % Immature Granulocytes 0.5 % (0-0.5); % Lymphocytes 11.2 % (20.5-51.1); % Monocytes 9.9 % (1.7-9.3); % Neutrophils 78.1 % (42.2-75.2); Absolute Immature Granulocytes 0.1 10^3/uL (0-0.05); Absolute Lymphocytes 1.5 10^3/uL (1.2-3.4); Absolute Monocytes 1.3 10^3/uL (0.1-0.6); Absolute Neutrophils 10.1 10^3/uL (1.4-6.5); Hematocrit 31.7 % (37.0-47.0); Hemoglobin 10.8 g/dL (12.0-16.0); Mean Corp Hgb Conc. 34.1 g/dL (33.0-37.0); Mean Corpuscular Hgb 31.2 pg (27.0-31.0); Mean Corpuscular Volume 91.6 fL (81.0-99.0); Nucleated Red Blood Cells % 0 %; Platelet Count 205 10^3/uL (130-400); Red Blood Cell Count 3.46 10^6/uL (4.20-5.40); Red Cell Dist. Width 12.3 % (11.5-14.5); White Blood Cell Count 12.9 10^3/uL (4.8-10.8)
[2024-08-11 07:17] VITALS: BP 125/80
--- NOTE | 2024-08-11 08:39 | W.PN.HOSP.TC ---
Today's Communication/Plan
-
Continue PT/OT
Video swallowing study tomorrow
Assessment / Plan
Assessment / Plan
Refused physical exam today.
Postoperative delirium -in the setting of suspected underlying cognitive impairment, Parkinson's disease. Frequent reorientation, melatonin, family support needed.
Acute traumatic right subcapital femur fracture -impacted on x-ray. Fracture due to trauma from fall and underlying osteoporosis. Underwent right hip hemiarthroplasty 08/10.
Parkinson's disease - complicated by visual hallucinations. Azilect discontinued a week ago by her neurologist In hopes of improving hallucinations.
Dysphagia -unclear pharyngeal versus esophageal. Speech therapy input noted. Recommendation to continue regular diet, thin liquids but to pick soft and moist foods primarily. Patient was offered video swallowing study by speech therapy but
currently declines. Aspiration precautions. Updated patient's son at the bedside and he would like to pursue video swallowing study while she is here, study ordered for Monday.
Normocytic anemia - unknown etiology or chronicity. Monitor for now.
Essential hypertension -continue amlodipine.
Hypothyroidism -continue Synthroid.
History of thyroid cancer - s/p thyroidectomy.
Full code
PT/OT -SNF recommended.
Dispo -anticipated rehab discharge in 24 to 48 hours if stable. Await video swallowing study.
Anticipated Discharge: 24 - 48 hours
Subjective/Interval History
-
Date of Service: August 11, 2024
Patient seen and examined. More confused today. No complaints.
Objective Data
-
Labs:
Laboratory Results
08/11/24
05:56
WBC 12.9 H
Hgb 10.8 L
Hct 31.7 L
Plt Count 205
Vital Signs:
Vital Signs
Temp Pulse Resp BP Pulse Ox
98.2 F 108 16 125/80 95
08/10/24 23:03 08/11/24 07:17 08/11/24 07:17 08/11/24 07:17 08/11/24 07:17
I&O
08/10/24 08/11/24 08/12/24
06:59 06:59 06:59
Intake Total 480 / 480 100 / 100
Output Total 1450 / 1450 400 / 400
Balance -970 / -970 -300 / -300
Review of Systems
-
Unable to obtain full review of systems at this time due to: Acuity
[2024-08-11] MEDS: MOBIC PO ×2 (09:36→12:10)
[2024-08-11] MEDS: SINEMET 25-100 1 TABLET PO ×3 (09:36→18:01)
[2024-08-11] MEDS: SYNTHROID PO (09:39)
[2024-08-11] MEDS: COLACE PO ×2 (09:40→20:23)
[2024-08-11] MEDS: SENOKOT PO (09:40)
[2024-08-11] MEDS: ASPIRIN PO (09:40)
[2024-08-11 10:18] LABS: TSH 0.54 uIU/ml (0.47-4.68)
--- NOTE | 2024-08-11 11:07 | W.PN.ORTHO ---
Today's Communication / Plan
-
83-year-old female postoperative day 1 right hip cemented hemiarthroplasty with Dr. Toledo
-Aspirin 325 daily x 4 weeks for DVT prophylaxis unless recommended otherwise per primary
-Regular diet unless recommended otherwise per primary
-Pain is well-controlled on current regimen
-PT/OT; weightbearing as tolerated with assist device. Fall precautions. Early mobility. Posterior hip or cautions x 6 weeks
-Discharge planning
-Orthopedic surgery will continue to follow
Assessment
.
Distal Motor Intact: Yes
Dressing:
Clean, dry and intact.
Assessment:
Postoperative images show status post cemented right hip bipolar endoprosthesis without evidence of osseous or hardware complication
Plan
.
Surgery / Date: 08/10/[address] Toledo
DVT Prophylaxis: Aspirin
Activity:
Out of bed.
PT/OT
Subjective
.
.:
Patient resting comfortably. Out of bed to chair. Slightly resistant towards examination but agreed
Vital Signs and Labs
.
Vital Signs and Labs:
Lab Results
08/11/24 05:56
08/09/24 06:08
Temp Pulse Resp BP Pulse Ox
98.2 F 108 16 125/80 95
08/10/24 23:03 08/11/24 07:17 08/11/24 07:17 08/11/24 07:17 08/11/24 07:17
PT 13.4 Sec (11.4-14.6) 08/08/24 18:33
INR 1.02 08/08/24 18:33
[2024-08-11] MEDS: TYLENOL PO (12:10)
[2024-08-11] MEDS: TYLENOL 1000 MG PO ×3 (12:19→21:40)
[2024-08-11] MEDS: ASPIRIN 325 MG PO (12:19)
[2024-08-11 16:10] VITALS: BP 106/61
[2024-08-11] MEDS: ROXICODONE 2.5 MG PO (20:27)
[2024-08-11] MEDS: SENOKOT 17.2 MG PO (20:27)
[2024-08-11] MEDS: NORVASC 2.5 MG PO (21:40)
[2024-08-11] MEDS: SINEMET 25-100 0.5 TABLET PO (21:40)
[2024-08-11] MEDS: MELATONIN 5 MG PO (21:43)
[2024-08-11 23:10] VITALS: BP 119/58
[2024-08-12] MEDS: SYNTHROID 112 MCG PO (03:37)
[2024-08-12] MEDS: ROXICODONE 5 MG PO (03:37)
[2024-08-12] MEDS: SYNTHROID PO (03:45)
[2024-08-12 06:03] LABS: % Basophils 0.3 % (0-2); % Eosinophils 4.2 % (0-6); % Immature Granulocytes 0.5 % (0-0.5); % Monocytes 10.2 % (1.7-9.3); % Neutrophils 69.8 % (42.2-75.2); Absolute Eosinophils 0.4 10^3/uL (0-0.7); Absolute Immature Granulocytes 0.1 10^3/uL (0-0.05); Absolute Lymphocytes 1.4 10^3/uL (1.2-3.4); Absolute Monocytes 0.9 10^3/uL (0.1-0.6); Absolute Neutrophils 6.4 10^3/uL (1.4-6.5); Hematocrit 28.1 % (37.0-47.0); Hemoglobin 9.3 g/dL (12.0-16.0); Mean Corp Hgb Conc. 33.1 g/dL (33.0-37.0); Mean Corpuscular Hgb 31.3 pg (27.0-31.0); Mean Corpuscular Volume 94.6 fL (81.0-99.0); Mean Platelet Volume 10.1 fL (7.4-10.4); Nucleated Red Blood Cells % 0 %; Platelet Count 188 10^3/uL (130-400); Red Blood Cell Count 2.97 10^6/uL (4.20-5.40); Red Cell Dist. Width 12.8 % (11.5-14.5); White Blood Cell Count 9.1 10^3/uL (4.8-10.8)
[2024-08-12 07:44] VITALS: BP 132/75
--- NOTE | 2024-08-12 08:25 | W.PN.HOSP.TC ---
Today's Communication/Plan
-
Hold narcotic pain medications (due to delirium and confusion) unless patient has severe pain
Bowel regimen to prevent constipation
Assessment / Plan
Assessment / Plan
Physical Exam
Gen-AAOx3, NAD
HEENT-NC, AT
Neck-supple
CV-reg, no M, +S1/S2
Lungs-clear B/L
Abd-soft, NT, ND. Positive bowel sounds.
Ext-no edema
Musculoskeletal-no cyanosis, right hip surgical dressing is clean, dry and intact.
Skin-warm and dry
Neuro-grossly non-focal
Psych-calm, cooperative
Assessment/Plan
Postoperative delirium - in the setting of suspected underlying cognitive impairment, Parkinson's disease and hospitalization with post-op state. Frequent reorientation, melatonin, family support needed. Hold narcotic pain medications.
Acute traumatic right subcapital femur fracture -impacted on x-ray. Fracture due to trauma from fall and underlying osteoporosis. Underwent right hip hemiarthroplasty 08/10.
Parkinson's disease - complicated by visual hallucinations. Based on previous notes, Azilect discontinued a week ago by her neurologist in hopes of improving hallucinations. Per patient's son Levi, her neurologist is Dr. Andrew Bang.
Dysphagia -unclear pharyngeal versus esophageal. Speech therapy input noted. Recommendation to continue regular diet, thin liquids but to pick soft and moist foods primarily. Patient was offered video swallowing study by speech therapy but
currently declines. Aspiration precautions. Spoke to patient's son Levi, and we agreed to put her on softer diet for now. Speech to continue to re-evaluate patient.
Normocytic anemia - unknown etiology or chronicity. Monitor for now.
Essential hypertension -continue amlodipine.
Hypothyroidism -continue Synthroid.
History of thyroid cancer - s/p thyroidectomy.
Full code
PT/OT -SNF recommended.
Dispo - Per case management, [facility] said [facility] can not accept until she�s been off medsitter for 24 hours. Per Speech Pathologist: patient refused video swallow study.
I spoke with patient's son Levi today, and all questions and concerns were answered to satisfaction.
Anticipated Discharge: > 48 hours
Subjective/Interval History
-
Date of Service: August 12, 2024
Patient was seen and examined. She was alert and oriented in the morning, but later in the day she was reported to be more confused by patient's nurse.
Objective Data
-
Labs:
Laboratory Results
08/12/24
05:11
WBC 9.1
Hgb 9.3 L
Hct 28.1 L
Plt Count 188
Vital Signs:
Vital Signs
Temp Pulse Resp BP Pulse Ox
99.6 F 85 14 132/75 97
08/12/24 07:44 08/12/24 07:44 08/12/24 07:44 08/12/24 07:44 08/12/24 07:44
I&O
08/11/24 08/12/24 08/13/24
06:59 06:59 06:59
Intake Total 100 / 100 960 / 960
Output Total 400 / 400
Balance -300 / -300 960 / 960
[2024-08-12] MEDS: TYLENOL 1000 MG PO ×3 (08:51→21:49)
[2024-08-12] MEDS: ASPIRIN 325 MG PO (08:51)
[2024-08-12] MEDS: SINEMET 25-100 1 TABLET PO ×3 (08:51→17:41)
[2024-08-12] MEDS: SENOKOT PO (08:53)
[2024-08-12] MEDS: MOBIC PO (08:53)
[2024-08-12] MEDS: COLACE PO (08:53)
--- NOTE | 2024-08-12 09:21 | W.PN.ORTHO ---
Today's Communication / Plan
-
Appreciate the efforts of the primary medical team, continue treatment
Appreciate CM efforts with Dispo
Continue WBAT B/L LEs on walker/assistance
PT/OT, THPs x 6 weeks
Dressint to remain 2 weeks
ASA 325mg daily x 4 weeks for DVT ppx, or per primary team
Outpatient follow-up with Dr. Toledo's team 4 weeks post-op
Assessment
.
Distal Motor Intact: Yes
Dressing:
Clean, dry and intact. Aquacel in place right hip
Assessment:
Right hip Osito
Overall doing/feeling well
Calf soft, nontender
Plan
.
Surgery / Date: 08/10/[address] Toledo
DVT Prophylaxis: Aspirin
Activity:
Out of bed. WBAT RLE on walker
PT/OT, THPs x 6 weeks
Discharge Plan: Other (per CM)
Subjective
.
.:
Patient resting comfortably in bed. Very pleasant and conversational. Minimal pain right hip
Vital Signs and Labs
.
Vital Signs and Labs:
Lab Results
08/12/24 05:11
08/09/24 06:08
Temp Pulse Resp BP Pulse Ox
99.6 F 85 14 132/75 97
08/12/24 07:44 08/12/24 07:44 08/12/24 07:44 08/12/24 07:44 08/12/24 07:44
PT 13.4 Sec (11.4-14.6) 08/08/24 18:33
INR 1.02 08/08/24 18:33
[2024-08-12 09:44] VITALS: BP 109/66; BP 114/65; PULSE 103; O2SAT 98
[2024-08-12 09:47] VITALS: BP 109/66; BP 114/65; PULSE 103; O2SAT 98
--- NOTE | 2024-08-12 14:16 | CM ---
Addendum entered by Petty Becerra 08/12/24 15:26:
Pt on medsitter. Refusing care at times. Per [facility] at the [facility], pt would need to be off the Medsitter x24 hrs before she can be accepted to SNF. Dr Elizabeth aware
Original Note:
Case management following for discharge planning
Chart reviewed
PT/OT recs - SNF
Family preference is the [facility]
Referral sent in Care Port
Will need auth
CM remains available for d/c needs
Plan - anticipate transfer to the [facility] when medically stable
--- NOTE | 2024-08-12 14:59 | PTCARENOTE ---
Pts son Levi Reyes called requesting NSG update on his mom. Son with concerns regarding his mothers mental status and when his mother would be discharged. Update reflecting today's assessment and care provided. Son questioning causes for
increased confusion/ agitation. RN explained narcotic use/ anesthesia/ parkinsons as possible contributing factors. Son requesting mother not to be discharged today. RN stated to son several times ' it is outside of a nurses scope of practice to
determine medical clearance for discharge or discuss medical diagnosis, i will let the doctor know you are requesting an update'. Dr Elizabeth and case management made aware of sons concerns. Care remains ongoing at this time.
[2024-08-12 15:45] VITALS: BP 124/65
[2024-08-12] MEDS: MIRALAX 17 GRAMS PO (16:38)
[2024-08-12] MEDS: SENOKOT 17.2 MG PO (19:26)
[2024-08-12] MEDS: COLACE 100 MG PO (19:26)
[2024-08-12] MEDS: MELATONIN 5 MG PO (21:47)
[2024-08-12] MEDS: SINEMET 25-100 0.5 TABLET PO (21:48)
[2024-08-12] MEDS: NORVASC 2.5 MG PO (21:49)
[2024-08-12 22:33] LABS: Blood Urea Nitrogen 35 mg/dl (7-17); Calcium 8.3 mg/dl (8.4-10.2); Carbon Dioxide 26 mmol/L (22-30); Chloride 104 mmol/L (98-107); Estimated Creatinine Clearance 40 ml/min; Glucose 98 mg/dl (70-99); Magnesium 2.1 mg/dl (1.6-2.3); Potassium 4.5 mmol/L (3.5-5.1); Sodium 138 mmol/L (135-145); eGFR > 60.00
[2024-08-12 23:20] VITALS: BP 109/60
--- NOTE | 2024-08-13 00:13 | PTCARENOTE ---
per [facility], confirmed that pt was d/c of [facility] at 1815.
[2024-08-13 03:08] VITALS: BP 142/86
[2024-08-13] MEDS: SYNTHROID 112 MCG PO (06:05)
[2024-08-13 07:01] VITALS: BP 130/73
[2024-08-13] MEDS: MIRALAX 17 GRAMS PO (08:31)
[2024-08-13] MEDS: SINEMET 25-100 1 TABLET PO ×3 (08:32→17:02)
[2024-08-13] MEDS: SENOKOT 17.2 MG PO (08:32)
[2024-08-13] MEDS: ASPIRIN 325 MG PO (08:32)
[2024-08-13] MEDS: MOBIC 15 MG PO (08:32)
[2024-08-13] MEDS: TYLENOL 1000 MG PO ×3 (08:32→22:14)
[2024-08-13] MEDS: COLACE PO ×2 (08:32→08:58)
[2024-08-13 09:16] LABS: % Basophils 0.4 % (0-2); % Eosinophils 4.3 % (0-6); % Immature Granulocytes 0.4 % (0-0.5); % Lymphocytes 15.1 % (20.5-51.1); % Monocytes 8.9 % (1.7-9.3); % Neutrophils 70.9 % (42.2-75.2); Absolute Eosinophils 0.3 10^3/uL (0-0.7); Absolute Lymphocytes 1.2 10^3/uL (1.2-3.4); Absolute Monocytes 0.7 10^3/uL (0.1-0.6); Absolute Neutrophils 5.5 10^3/uL (1.4-6.5); Hematocrit 27.4 % (37.0-47.0); Hemoglobin 8.9 g/dL (12.0-16.0); Mean Corp Hgb Conc. 32.5 g/dL (33.0-37.0); Mean Corpuscular Hgb 29.8 pg (27.0-31.0); Mean Corpuscular Volume 91.6 fL (81.0-99.0); Nucleated Red Blood Cells % 0 %; Platelet Count 213 10^3/uL (130-400); Red Blood Cell Count 2.99 10^6/uL (4.20-5.40); Red Cell Dist. Width 12.9 % (11.5-14.5); White Blood Cell Count 7.8 10^3/uL (4.8-10.8)
--- NOTE | 2024-08-13 09:22 | W.PN.HOSP.TC ---
Today's Communication/Plan
-
Mental status is significantly better today. Avoid narcotic pain medications as much as possible.
Patient needs to be off medsitter for 24 hours which should be this evening
Case management also is working on auth, placement
Assessment / Plan
Assessment / Plan
Physical Exam
Gen-AAOx3, NAD
HEENT-NC, AT
Neck-supple
CV-reg, no M, +S1/S2
Lungs-clear B/L
Abd-soft, NT, ND. Positive bowel sounds.
Ext-no edema
Musculoskeletal-no cyanosis, right hip surgical dressing is clean, dry and intact.
Skin-warm and dry
Neuro-grossly non-focal
Psych-calm, cooperative
Assessment/Plan
Toxic metabolic encephalopathy due to anesthesia, pain medications, etc. from surgery, hip fracture, etc.
Postoperative delirium - RESOLVED TODAY - in the setting of suspected underlying cognitive impairment, Parkinson's disease and hospitalization with post-op state. Frequent reorientation, melatonin, family support needed. Hold narcotic pain
medications.
Acute traumatic right subcapital femur fracture -impacted on x-ray. Fracture due to trauma from fall and underlying osteoporosis. Underwent right hip hemiarthroplasty 08/10.
Parkinson's disease - complicated by visual hallucinations. Based on previous notes, Azilect discontinued around 08/02/24 by her neurologist in hopes of improving hallucinations. Per patient's son Levi, her neurologist is Dr. Andrew Bang.
Dysphagia -unclear pharyngeal versus esophageal. Speech therapy input noted. Recommendation to continue regular diet, thin liquids but to pick soft and moist foods primarily. Patient was offered video swallowing study by speech therapy but
declined this. Aspiration precautions. Spoke to patient's son Levi, and we have all decided to continue patient on a regular diet, Levi requested patient be on a regular diet, which would help with patient's irritable mood. Speech to
continue to re-evaluate patient.
Acute blood loss anemia
Normocytic anemia - unknown etiology or chronicity. Check iron studies and vitamin B12. Monitor CBC.
Essential hypertension -continue amlodipine.
Hypothyroidism -continue Synthroid.
History of thyroid cancer - s/p thyroidectomy.
Full code
PT/OT -SNF recommended.
Dispo - Per case management, [facility] can not accept until she�s been off medsitter for 24 hours (which is expected to be around 6 pm on 08/13/24). Per Speech Pathologist: patient refused video swallow study.
I spoke with patient's son Levi on 08/13/24, and all questions and concerns were answered to satisfaction.
Anticipated Discharge: Within 24 hours
Subjective/Interval History
-
Date of Service: August 13, 2024
Patient was seen and examined. She denied any pain or any other new symptoms. She would like to have a regular diet.
Objective Data
-
Labs:
Laboratory Results
08/12/24 08/13/24
21:59 08:08
WBC 7.8
Hgb 8.9 L
Hct 27.4 L
Plt Count 213
Sodium 138
Potassium 4.5
Chloride 104
Carbon Dioxide 26
BUN 35 H
Creatinine 0.9
Glucose 98
Calcium 8.3 L
Vital Signs:
Vital Signs
Temp Pulse Resp BP Pulse Ox
98.7 F 87 15 130/73 94
08/13/24 07:01 08/13/24 07:01 08/13/24 07:01 08/13/24 07:01 08/13/24 07:01
I&O
08/12/24 08/13/24 08/14/24
06:59 06:59 06:59
Intake Total 960 / 960 840 / 840
Balance 960 / 960 840 / 840
--- NOTE | 2024-08-13 09:32 | PTOTSP ---
Dysphagia Therapy
Recommend diet below to allow softer/moister foods while patient experiencing delirium that may limit her ability to independently make these selections. Patient consented to temporary diet modifications.
Recommend:
1. IDDSI Level 6 Soft/Bite Sized, Thin Liquids
2. Medications - 1 at a time in puree
3. Strategies: HOB as close to 90 degrees as medically cleared/tolerated, soften/moisten foods, alternate sips/bites, remain upright for 30 minutes after PO intake
4. Oral care 3x daily
5. Brief dysphagia therapy follow up at the acute care level.
--- NOTE | 2024-08-13 11:55 | CM ---
Addendum entered by Petty Becerra 08/13/24 15:16:
Called pts insurance - [facility]
Spoke with [place]
Ref # I - [id number]
Per [place] - SNF auth provided through [employer] [facility]
Called and LM detailed message at [phone]
Clinicals faxed to [phone]
Waiting decision unit rn back from UR rep
Plan - Transfer to [facility] when auth obtained
Original Note:
Case management following for discharge planning
Pt for the [facility] when medically ready
Has been off Medsitter since 1800 yesterday
Per Prachi at [facility] - bed available tomorrow
Discussed with pt - agrees with [facility]
Called pts son Levi - LM with call back number
Will need auth
Plan - Transfer to [facility] when auth obtained
--- NOTE | 2024-08-13 13:06 | PN.CDI ---
CDI
- -
CDI:
Physician Documentation Request
Admit Date: 08/08/24 21:24
Dear Doctor Clara,
Please review the following and provide your response in the progress notes.
Clinical Indicators:
PN, 08/11
#Postoperative delirium -in the setting of suspected underlying cognitive impairment,...
PN, 08/12
#Hold narcotic pain medications (due to delirium and confusion) unless patient has severe pain
#Postoperative delirium - in the setting of suspected underlying
#...cognitive impairment, Parkinson's disease and hospitalization with post-op state. #Frequent reorientation, melatonin, family support needed.
#Hold narcotic pain medications.
Based on the above and your clinical assessment, please clarify in the most likely etiology of the confusion/altered mental status.
Toxic metabolic encephalopathy due to anesthesia, pain medications, etc. from surgery, hip fracture, etc.
Metabolic encephalopathy
Postoperative delirium only
Other (please specify)
Use of terms such as suspected, likely, concern for, or probable (associated with a specific diagnosis that is being evaluated, monitored, or treated as if it exists) are acceptable and can be coded in the inpatient setting, when documented at the
time of discharge.
Thank you,
Yoly Alexandre RN BSN CCDS
CDI Specialist
please contact via tiger text
Please use your independent medical judgment in providing your response.
--- NOTE | 2024-08-13 13:26 | PN.CDI ---
CDI
- -
CDI:
Physician Documentation Request
Admit Date: 08/08/24 21:24
Dear Doctor Clara,
Please review the following and provide your response in the progress notes.
Clinical Indicators:
08/10 OPERATION PERFORMED: Right hip hemiarthroplasty
#ESTIMATED BLOOD LOSS: 100 mL.
PN, 08/12
#Normocytic anemia - unknown etiology or chronicity.
Laboratory Tests
08/08/24 08/09/24 08/10/24
18:33 06:08 06:22
Hgb 11.5 L 10.3 L 11.4 L
08/11/24 08/12/24 08/13/24
05:56 05:11 08:08
Hgb 10.8 L 9.3 L 8.9 L
Based on the above and your clinical assessment, please clarify the most likely type of anemia evaluated, monitored and/or treated?
Acute blood loss anemia
Acute blood loss anemia with baseline chronic anemia (Specify type)
Chronic normocytic anemia
Other(please specify)
Use of terms such as suspected, likely, concern for, or probable (associated with a specific diagnosis that is being evaluated, monitored, or treated as if it exists) are acceptable and can be coded in the inpatient setting, when documented at the
time of discharge.
Thank you,
Yoly Alexandre RN BSN CCDS
CDI Specialist
please contact via tiger text
Please use your independent medical judgment in providing your response.
[2024-08-13 14:55] VITALS: BP 142/70
[2024-08-13] MEDS: SENOKOT PO (19:54)
[2024-08-13] MEDS: COLACE 100 MG PO (19:54)
[2024-08-13] MEDS: MELATONIN 5 MG PO (22:15)
[2024-08-13] MEDS: SINEMET 25-100 0.5 TABLET PO (22:15)
[2024-08-13] MEDS: NORVASC 2.5 MG PO (22:16)
[2024-08-13 23:07] VITALS: BP 135/76
[2024-08-14] MEDS: SYNTHROID 112 MCG PO (05:24)
[2024-08-14 06:40] LABS: Hematocrit 25.4 % (37.0-47.0); Hemoglobin 8.5 g/dL (12.0-16.0); Mean Corp Hgb Conc. 33.5 g/dL (33.0-37.0); Mean Corpuscular Hgb 31.5 pg (27.0-31.0); Mean Corpuscular Volume 94.1 fL (81.0-99.0); Mean Platelet Volume 10.1 fL (7.4-10.4); Platelet Count 225 10^3/uL (130-400); Red Cell Dist. Width 12.6 % (11.5-14.5); White Blood Cell Count 6.9 10^3/uL (4.8-10.8)
[2024-08-14 07:05] LABS: Blood Urea Nitrogen 35 mg/dl (7-17); Calcium 8.2 mg/dl (8.4-10.2); Carbon Dioxide 26 mmol/L (22-30); Chloride 105 mmol/L (98-107); Estimated Creatinine Clearance 40 ml/min; Glucose 90 mg/dl (70-99); Iron 37 ug/dl (37-170); Potassium 4.2 mmol/L (3.5-5.1); Sodium 140 mmol/L (135-145); eGFR > 60.00
[2024-08-14 07:14] LABS: Percent Saturation 15 % (20-50); Total Iron Binding Capacity 246 ug/dl (265-497)
[2024-08-14 07:26] VITALS: BP 142/73
[2024-08-14 07:44] LABS: Ferritin 85.3 ng/ml (11.1-264.0)
[2024-08-14 07:58] LABS: Vitamin B12 611 pg/ml (239-931)
[2024-08-14] MEDS: TYLENOL 1000 MG PO ×3 (08:56→22:36)
[2024-08-14] MEDS: MOBIC 15 MG PO (08:56)
[2024-08-14] MEDS: SINEMET 25-100 1 TABLET PO ×3 (08:56→16:59)
[2024-08-14] MEDS: ASPIRIN 325 MG PO (08:56)
[2024-08-14] MEDS: SENOKOT PO (08:57)
[2024-08-14] MEDS: MIRALAX PO (08:57)
[2024-08-14] MEDS: COLACE PO (08:57)
[2024-08-14 09:35] VITALS: BP 134/73
--- NOTE | 2024-08-14 10:09 | CM ---
Addendum entered by Petty Becerra 08/14/24 14:19:
Transport arranged for 4PM. Pr[facility] at the [facility] made aware. Per Prachi - unable to accept at that time per her DON
Transport time changed to 1:30PM - [facility] made aware. Unable to accept at this due to another pt to be admitted at same time
Dr Elizabeth and ns made aware.
Transport arranged for 10AM on 08/15 - Prachi made aware
Called pts diane Sims - left message with call back number - Re: discharge rescheduled for tomorrow morning
Plan - Transfer to [facility] at [facility] in [place]
R - [phone]
F - [phone]
Original Note:
Case management following for discharge planning
Auth approved
RE # [id number]
Approved 08/13-08/20 for SNF level 2
Auth info given to Pr[facility] at the [facility]
Dr Elizabeth made aware
Spoke with pts diane Sims - updated regarding acceptance at [facility] and transport - agrees with plan
Discussed IMM with pts son
Pt will need covid prior to d/c
Plan - Transfer to [facility] at [facility]
R - [phone]
F - [phone]
[2024-08-14 10:40] VITALS: BP 134/73
[2024-08-14 11:21] LABS: COVID-19 Antigen Negative (Negative)
--- NOTE | 2024-08-14 13:05 | W.PN.HOSP.TC ---
Addendum entered and electronically signed by Dionicio Elizabeth MD 08/14/24 14:14:
Per patient's nurse and case management, [facility] not [facility] today; patient can go there tomorrow morning.
Original Note:
Today's Communication/Plan
-
Discharge today
Assessment / Plan
Assessment / Plan
Physical Exam
Gen-AAOx3, NAD
HEENT-NC, AT
Neck-supple
CV-reg, no M, +S1/S2
Lungs-clear B/L
Abd-soft, NT, ND. Positive bowel sounds.
Ext-no edema
Musculoskeletal-no cyanosis, right hip surgical dressing is clean, dry and intact.
Skin-warm and dry
Neuro-grossly non-focal
Psych-calm, cooperative
Assessment/Plan
Toxic metabolic encephalopathy due to anesthesia, pain medications, etc. from surgery, hip fracture, etc.
Postoperative delirium - RESOLVED TODAY - in the setting of suspected underlying cognitive impairment, Parkinson's disease and hospitalization with post-op state. Frequent reorientation, melatonin, family support needed. Hold narcotic pain
medications.
Acute traumatic right subcapital femur fracture -impacted on x-ray. Fracture due to trauma from fall and underlying osteoporosis. Underwent right hip hemiarthroplasty 08/10.
Parkinson's disease - complicated by visual hallucinations. Based on previous notes, Azilect discontinued around 08/02/24 by her neurologist in hopes of improving hallucinations. Per patient's son Levi, her neurologist is Dr. Andrew Bang.
Dysphagia -unclear pharyngeal versus esophageal. Speech therapy input noted. Recommendation to continue regular diet, thin liquids but to pick soft and moist foods primarily. Patient was offered video swallowing study by speech therapy but
declined this. Aspiration precautions. Spoke to patient's son Levi, and we have all decided to continue patient on a regular diet, Levi requested patient be on a regular diet, which would help with patient's irritable mood. Speech to
continue to re-evaluate patient.
Acute blood loss anemia
Normocytic anemia - unknown etiology or chronicity. Start Ferrous Sulfate 325 mg PO Q48H based on iron studies. Monitor CBC closely outpatient. Hematology follow-up.
Essential hypertension -continue amlodipine.
Hypothyroidism -continue Synthroid.
History of thyroid cancer - s/p thyroidectomy.
Full code
PT/OT -SNF recommended.
Dispo - Per case management, disposition to SNF. Per Speech Pathologist: patient refused video swallow study.
I spoke with patient's son Levi on 08/13/24, and all questions and concerns were answered to satisfaction.
More than 30 minutes spent in discharge including
Final examination of the patient
Summarizing hospital stay
Instructions for continuing care to all relevant caregivers
Preparation of discharge records, prescriptions, and referral forms
Total time spent (in minutes): 38
Anticipated Discharge: Today
Subjective/Interval History
-
Date of Service: August 14, 2024
Patient was seen and examined. She denied any new symptoms or complaints.
Objective Data
-
Labs:
Laboratory Results
08/14/24 08/14/24
04:56 12:33
WBC 6.9 Pending
Hgb 8.5 L Pending
Hct 25.4 L Pending
Plt Count 225 Pending
Sodium 140
Potassium 4.2
Chloride 105
Carbon Dioxide 26
BUN 35 H
Creatinine 0.9
Glucose 90
Calcium 8.2 L
Vital Signs:
Vital Signs
Temp Pulse Resp BP Pulse Ox
98.5 F 78 15 142/73 97
08/14/24 07:26 08/14/24 07:26 08/14/24 07:26 08/14/24 07:26 08/14/24 08:00
I&O
08/13/24 08/14/24 08/15/24
06:59 06:59 06:59
Intake Total 840 / 840 2100 / 2100
Balance 2099
[2024-08-14 13:08] LABS: Hematocrit 28.6 % (37.0-47.0); Hemoglobin 9.2 g/dL (12.0-16.0); Mean Corp Hgb Conc. 32.2 g/dL (33.0-37.0); Mean Corpuscular Hgb 30.6 pg (27.0-31.0); Mean Platelet Volume 9.8 fL (7.4-10.4); Platelet Count 285 10^3/uL (130-400); Red Blood Cell Count 3.01 10^6/uL (4.20-5.40); Red Cell Dist. Width 12.7 % (11.5-14.5); White Blood Cell Count 9.2 10^3/uL (4.8-10.8)
[2024-08-14 13:13] VITALS: BP 142/82
--- NOTE | 2024-08-14 14:13 | PTCARENOTE ---
Pt IV was removed for discharge. Facility no longer able to accept patient today. Pt refusing new IV access. Dr. Elizabeth notified.
[2024-08-14 15:26] VITALS: BP 121/68
[2024-08-14] MEDS: COLACE 100 MG PO (22:36)
[2024-08-14] MEDS: MELATONIN 5 MG PO (22:36)
[2024-08-14] MEDS: SENOKOT 17.2 MG PO (22:37)
[2024-08-14] MEDS: SINEMET 25-100 0.5 TABLET PO (22:37)
[2024-08-14] MEDS: NORVASC 2.5 MG PO (22:38)
[2024-08-14 23:22] VITALS: BP 140/71
[2024-08-15] MEDS: SYNTHROID 112 MCG PO (05:41)
[2024-08-15 07:00] VITALS: BP 150/76
[2024-08-15] MEDS: TYLENOL 1000 MG PO (07:54)
[2024-08-15] MEDS: SINEMET 25-100 1 TABLET PO (07:54)
[2024-08-15] MEDS: MIRALAX 17 GRAMS PO (07:54)
[2024-08-15] MEDS: SENOKOT PO (07:58)
[2024-08-15] MEDS: COLACE PO (07:58)
[2024-08-15] MEDS: MOBIC 15 MG PO (07:58)
[2024-08-15] MEDS: ASPIRIN 325 MG PO (07:58)
--- NOTE | 2024-08-15 09:01 | W.PN.HOSP.TC ---
Today's Communication/Plan
-
Discharge today
Assessment / Plan
Assessment / Plan
Physical Exam
Gen-AAOx3, NAD
HEENT-NC, AT
Neck-supple
CV-reg, no M, +S1/S2
Lungs-clear B/L
Abd-soft, NT, ND. Positive bowel sounds.
Ext-no edema
Musculoskeletal-no cyanosis, right hip surgical dressing is clean, dry and intact.
Skin-warm and dry
Neuro-grossly non-focal
Psych-calm, cooperative
Assessment/Plan
Toxic metabolic encephalopathy due to anesthesia, pain medications, etc. from surgery, hip fracture, etc.
Postoperative delirium - RESOLVED - in the setting of suspected underlying cognitive impairment, Parkinson's disease and hospitalization with post-op state. Frequent reorientation, melatonin, family support needed. Hold narcotic pain medications.
Acute traumatic right subcapital femur fracture - impacted on x-ray. Fracture due to trauma from fall and underlying osteoporosis. Underwent right hip hemiarthroplasty 08/10/24.
-Continue WBAT B/L LEs on walker/assistance
-PT/OT, THPs x 6 weeks -fall precautions. Early mobility. Posterior hip or cautions x 6 weeks
-Dressing to remain 2 weeks
-ASA 325mg daily x 4 weeks for DVT ppx, or per primary team (Day 1 of Aspirin 325 mg daily was 08/10/24)
-Outpatient follow-up with Dr. Toleod's team 4 weeks post-op
Parkinson's disease - complicated by visual hallucinations. Based on previous notes, Azilect discontinued around 08/02/24 by her neurologist in hopes of improving hallucinations. Per patient's son Levi, her neurologist is Dr. Andrew Bang.
Dysphagia - unclear pharyngeal versus esophageal. Speech therapy input noted. Recommendation to continue regular diet, thin liquids but to pick soft and moist foods primarily. Patient was offered video swallowing study by speech therapy but
declined this. Aspiration precautions. Spoke to patient's son Levi, and we have all decided to continue patient on a regular diet, Levi requested patient be on a regular diet, which would help with patient's irritable mood. Speech to
continue to re-evaluate patient.
Acute blood loss anemia
Normocytic anemia - unknown etiology or chronicity. I spoke on 08/15/24 to on-call scratch polisher, and discussed interaction between Ferrous Sulfate and patient's Levodopa -- on-call scratch polisher said it is acceptable to hold Ferrous Sulfate given
that Hgb has started improving. Monitor CBC closely outpatient. Hematology follow-up.
Essential hypertension -continue amlodipine.
Hypothyroidism -continue Synthroid.
History of thyroid cancer - s/p thyroidectomy.
Full code
PT/OT -SNF recommended.
Dispo - Per case management, disposition to SNF. Per Speech Pathologist: patient refused video swallow study.
I spoke with patient's son Levi on 08/13/24, and all questions and concerns were answered to satisfaction.
More than 30 minutes spent in discharge including
Final examination of the patient
Summarizing hospital stay
Instructions for continuing care to all relevant caregivers
Preparation of discharge records, prescriptions, and referral forms
Total time spent (in minutes): 35
Anticipated Discharge: Today
Subjective/Interval History
-
Date of Service: August 15, 2024
Patient was seen and examined. She denied any pain or any other symptoms or complaints. She would really like to leave the hospital today, as per patient.
Objective Data
-
Vital Signs:
Vital Signs
Temp Pulse Resp BP Pulse Ox
97.6 F 87 18 150/76 98
08/15/24 07:00 08/15/24 07:00 08/15/24 07:00 08/15/24 07:00 08/15/24 07:00
I&O
08/14/24 08/15/24 08/16/24
06:59 06:59 06:59
Intake Total 2099 1680 / 1680
Balance 2099 1680 / 1680
--- NOTE | 2024-08-15 09:24 | PTCARENOTE ---
RN attempted to call report to nurse at [facility], accepting nurse unable to take report at this time. Name and call back number provided. This RN awaiting call back. Care ongoing.
--- NOTE | 2024-08-15 09:27 | CM ---
Addendum entered by Petty Becerra 08/15/24 11:41:
Prior to discharge spoke with pts son Levi - aware mother to be transported to the [facility] today
Original Note:
Pt for discharge to the [facility] today
Transport at 10AM
Spoke with Prachi at the [facility] - aware of discharge and transport time
Called pts son Levi - unable to leave message as VM is full
Plan - Transfer to [facility] at [facility]
R - [phone]
F - [phone]
--- NOTE | 2024-08-15 09:49 | PTCARENOTE ---
This RN verified via phone call with Socorro Pacheco RN that pt had a BM yesterday 08/15 and 08/14.
== END 2024-08-15 10:18 | DRG 521 ==
LOC: 2 SOUTH 21:24
PROVIDERS: Hospitalist; Orthopaedic Surgery; ADMITTING PHYSICIAN Hospitalist; ATTENDING PHYSICIAN Hospitalist; CONSULT PHYSICIAN Specialist; EMERGENCY PHYSICIAN Emergency Medicine; FAMILY PHYSICIAN Internal Medicine Geriatric Medicine
PROC: 0SRR0J9 Replacement of Right Hip Joint, Femoral Surface with Synthetic Substitute, Cemented, Open Approach (ICD-10-PCS; 2024-08-10)
DX: M80.051A Age-related osteoporosis with current pathological fracture, right femur, initial encounter for fracture (principal); G92.8 Other toxic encephalopathy; D62 Acute posthemorrhagic anemia; F05 Delirium due to known physiological condition; S72.051A Unspecified fracture of head of right femur, initial encounter for closed fracture; S72.011A Unspecified intracapsular fracture of right femur, initial encounter for closed fracture; G20.A1 Parkinson's disease without dyskinesia, without mention of fluctuations; E89.0 Postprocedural hypothyroidism; I10 Essential (primary) hypertension; T41.45XA Adverse effect of unspecified anesthetic, initial encounter; W01.0XXA Fall on same level from slipping, tripping and stumbling without subsequent striking against object, initial encounter; F41.9 Anxiety disorder, unspecified; R44.1 Visual hallucinations; R13.10 Dysphagia, unspecified; Z79.890 Hormone replacement therapy; Z79.899 Other long term (current) drug therapy; Z87.891 Personal history of nicotine dependence; Z88.1 Allergy status to other antibiotic agents; Z85.3 Personal history of malignant neoplasm of breast; Z85.850 Personal history of malignant neoplasm of thyroid
CPT/HCPCS: 73502; 80048; 80053; 81003; 82607; 82728; 83540; 83550; 83735; 84443; 85025; 85027; 85610; 85730; 86850; 86900; 86901; 87070; 87811; 92610; 93005; 96374; 96376; 97116; 97163; 97167; 97530; 97535; 99285; C1713; C1776